=== PATIENT | male | born 1955 | race African-American/Black ===

== ENCOUNTER 2020-02-06 09:10 | Emergency (ER) | payer OTHER ==
[~2020-02-06] VITALS: Ht 167.6 cm; Wt 72.6 kg
--- NOTE | 2020-02-06 09:20 | NUR ---
ED Nurse Note: pt brought in by ed via w/c assistance from his car for C/O bilateral leg pain due to arthritis. pt has hx of arthritis x 7 years.
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
[2020-02-06] MEDS ORDERED: HYDROcodone/Acetamin 5/325 tab ORAL ONE (09:30)
[2020-02-06] MEDS ORDERED: Ketorolac 30mg Inj IM ONE (09:30)
--- NOTE | 2020-02-06 09:42 | NUR ---
ED Nurse Note: US by bed side
[2020-02-06] MEDS ORDERED: NAPROXEN375 M2 ORAL (10:14)
[2020-02-06] MEDS ORDERED: NORCO 5-325 TA1 EAC1 ORAL (10:14)
[2020-02-06 10:18] VITALS: BP 123/72
--- NOTE | 2020-02-06 10:39 | Diagnostic Imaging Report ---
EXAM: ULTRASOUND Venous Duplex Scan Jonathan Leg CLINICAL HISTORY: Leg pain and edema. COMPARISON: None TECHNIQUE: Doppler examination include grayscale images obtained with and without compression, and color and spectral doppler analysis. FINDINGS: Doppler examination shows normal spontaneity, phasicity, compressibility in the bilateral lower extremities. There is no thrombus identified by grayscale. Normal color and spectral flow is identified. There is no evidence of valvular incompetency or insufficiency. IMPRESSION: UNREMARKABLE VENOUS DUPLEX.
--- NOTE | 2020-02-06 10:41 | NUR ---
ED Nurse Note: Pt cleared by health care Provider for discharge. DC instructions/prescription was given and explained to pt and verbalized understanding of teachings. All medical deviecs such as ID band removed. Pt is AAO x4, ambulatory and left with all personal belongings.
== END 2020-02-06 10:18 | disposition home or self-care (01) ==
LOC: EMR 09:25
DX: M19.90 Unspecified osteoarthritis, unspecified site (principal); M79.605 Pain in left leg; M79.604 Pain in right leg; R60.0 Localized edema
CPT/HCPCS: 93970; 96372; J1885; Z7502; 99284